=== PATIENT | female | born 1940 | race Caucasian/White ===

== ENCOUNTER → 2016-03-07 | Outpatient (CLI) | payer OTHER ==
--- NOTE | 2016-03-09 11:02 | REP ---
Left foot four views : There is no fracture or dislocation. Mineralization and joint spaces are normal. There are no calcifications or foreign bodies. Impression: Negative left foot . Signed by Domo Elizabeth MD 03/07/2016 11:54 A
== END ==
LOC: M ADAMS 11:39
PROVIDERS: ATTEND Physician Assistant Medical
DX: S93.602A Unspecified sprain of left foot, initial encounter (principal); X58.XXXA Exposure to other specified factors, initial encounter; Y92.89 Other specified places as the place of occurrence of the external cause; Y99.9 Unspecified external cause status

== ENCOUNTER → 2017-01-21 | Outpatient (CLI) | payer OTHER ==
--- NOTE | 2017-01-21 10:50 | REP ---
BILATERAL SCREENING DIGITAL MAMMOGRAPHY: There are no palpable abnormalities or other breast complaints. The patient states she/he had a clinical breast exam in 01/2017. Comparisons are 11/28/2015 and 10/07/2010. There is mildly dense breast parenchyma. There are two small focal zones of slightly increased parenchymal density in the left breast on both views as an interval change. There are no focal suspicious findings in the right breast. IMPRESSION: BI-RADS category 4, suspicious. The patient should return for spot compression views of the left breast. The decision for additional views, ultrasound, or MRI will be based on findings on this initial followup study. This mammogram was interpreted with the aid of an FDA-approved computer-aided detection system. A. Negative x-ray reports should not delay biopsy if a dominant or clinically suspicious mass is present. B. Not all breast cancers are identified by x-ray. C. Adenosis and dense breasts may obscure an underlying neoplasm. The patient letter M4. Signed by Domo Elizabeth MD 01/21/2017 10:53 A
== END ==
LOC: M WHC 08:43
PROVIDERS: ATTEND Nurse Practitioner Family
DX: Z12.31 Encounter for screening mammogram for malignant neoplasm of breast (principal); R92.8 Other abnormal and inconclusive findings on diagnostic imaging of breast

== ENCOUNTER → 2017-01-27 | Outpatient (CLI) | payer OTHER ==
--- NOTE | 2017-01-27 19:09 | REP ---
DIAGNOSTIC MAMMOGRAM BILATERAL BREASTS: Bilateral bread gonzalez, spot compression views of the breasts are performed to evaluate possible bj-densities. There is mild fibroglandular density bilaterally in a fairly symmetrical pattern. There is no change since multiple prior exams with no evidence of new mass or architectural distortion. IMPRESSION: ACR 2 benign. No change since prior studies. No new mass or architectural distortion. Suggest followup mammogram in one year. BI-RADS/ACR category 2 mammogram. Benign finding(s). Routine annual screening mammography (for women over age 40). The patient letter being requested is M1. Signed by Domo Robin MD 01/28/2017 08:28 P
== END ==
LOC: M RAD 11:12
PROVIDERS: ATTEND Nurse Practitioner Family
DX: R92.2 Inconclusive mammogram (principal)